=== PATIENT | female | born 2000 | race Caucasian/White ===

== ENCOUNTER 2021-04-21 17:57 | Emergency (ER) | payer OTHER ==
[~2021-04-21 17:57] MED LIST: BENTYL10 MG PO; IBUPROFEN800 MG PO; MEDROL 4MG DOSEP4 MG PO; MOTRIN600 MG PO; NORCO 5-325 TA1 EACH PO; ONDANSETRON ODT4 MG SL; PEPCID AC20 MG PO; PROAIR HFA8.5 GM INH; TAMIFLU 75MG CA75 MG PO; VIBRAMYCIN100 MG PO; ZOFRAN4 MG SL
[2021-04-21 18:57] LABS: BILIRUBIN 1+ mg/dL (NEGATIVE); BLOOD 3+ Ery/uL (NEGATIVE); CLARITY HAZY (CLEAR); COLOR YELLOW (YELLOW); GLUCOSE (U) NORMAL (NORMAL); LEUKOCYTES NEGATIVE Leu/uL (NEGATIVE); NITRITE NEGATIVE (NEGATIVE); PROTEIN 2+ mg/dL (NEGATIVE); SPECIFIC GRAVITY >=1.030 (1.001-1.030); UROBILINOGEN 0.2 mg/dL (0.2-1.0); pH 5.5 (5.0-9.0)
[2021-04-21 19:03] LABS: BASOPHIL 0.2 % (0-2); EOSINOPHIL 0.6 % (0-5); HCT 39.2 % (37.0-47.0); HGB 12.1 g/dl (12.5-16.0); LYMPHOCYTE 18.2 % (15-48); MCH 22.3 pg (25.0-31.0); MCHC 30.9 g/dL (32.0-36.0); MCV 72.2 fL (78.0-100.0); MONOCYTE 5.2 % (0-12); MPV 9.3 fL (6.0-9.5); NEUTROPHIL 75.3 % (41-80); NRBC 0; PLT 457 K/uL (150-400); RBC 5.43 M/uL (4.20-5.40); RDW 16.7 % (11.5-14.0)
[2021-04-21 19:05] LABS: AMORPHOUS URATES CRYSTALS TRACE; AMPHETAMINES NEGATIVE (NEGATIVE); BACTERIA 3+; BARBITURATES NEGATIVE (NEGATIVE); ECSTASY (MDMA) NEGATIVE (NEGATIVE); MARIJUANA (THC) NEGATIVE (NEGATIVE); METHADONE NEGATIVE (NEGATIVE); OPIATES NEGATIVE (NEGATIVE); OXYCODONE NEGATIVE (NEGATIVE)
[2021-04-21 19:20] LABS: ALBUMIN 3.7 g/dL (3.4-5.0); BILIRUBIN - TOTAL 0.4 mg/dL (0.2-1.0); BUN/CREAT RATIO (CALC) 19.5 RATIO; CREATININE 0.41 mg/dL (0.51-0.95); GLOBULIN (CALCULATION) 4.2 g/dL; POTASSIUM 4.1 mmol/L (3.5-5.1); TOTAL PROTEIN 7.9 g/dL (6.4-8.2)
[2021-04-21 19:43] LABS: LACTIC ACID 3.6 mmol/L (0.4-1.9)
[2021-04-21] MEDS ORDERED: BACLOFEN 10MG T10 MG PO (22:35)
[2021-04-21] MEDS ORDERED: BACTRIM DS TAB1 EACH PO (22:35)
[2021-04-21] MEDS ORDERED: NAPROXEN500 MG PO (22:35)
[2021-04-24 18:09] LABS: CHLAMYDIA TRACHOMATIS, NAA Positive (Negative); NEISSERIA GONORRHOEAE, NAA Negative (Negative)
== END 2021-04-21 22:59 | disposition home or self-care (01) ==
LOC: FER 17:57
PROVIDERS: Nurse Practitioner Family
DX: N39.0 Urinary tract infection, site not specified (principal); J45.909 Unspecified asthma, uncomplicated; F17.290 Nicotine dependence, other tobacco product, uncomplicated
CPT/HCPCS: 36415; 80053; 80305; 81001; 83605; 84702; 85025; 87040; 87088; 87491; 87591; J1170; J1885; J2405; J2543; J7030; Q9967

== ENCOUNTER 2021-12-02 18:52 | Emergency (ER) | payer OTHER ==
[~2021-12-02 18:52] MED LIST changes: +BACLOFEN 10MG T10 MG PO; +BACTRIM DS TAB1 EACH PO; +NAPROXEN500 MG PO
[2021-12-02 20:24] LABS: BASOPHIL 0.2 % (0-2); EOSINOPHIL 0.4 % (0-5); HGB 11.4 g/dl (12.5-16.0); LYMPHOCYTE 17.3 % (15-48); MCH 22.9 pg (25.0-31.0); MCHC 31.7 g/dL (32.0-36.0); MCV 72.3 fL (78.0-100.0); MONOCYTE 4.3 % (0-12); MPV 9.4 fL (6.0-9.5); NEUTROPHIL 77.3 % (41-80); NRBC 0; PLT 443 K/uL (150-400); RBC 4.98 M/uL (4.20-5.40); RDW 16.1 % (11.5-14.0); WBC 16.6 K/uL (4.0-10.5)
[2021-12-02 20:50] LABS: BUN/CREAT RATIO (CALC) 15.4 RATIO; CREATININE 0.52 mg/dL (0.51-0.95); POTASSIUM 3.8 mmol/L (3.5-5.1)
[2021-12-02 20:52] LABS: BILIRUBIN NEGATIVE (NEGATIVE); BLOOD 3+ Ery/uL (NEGATIVE); CLARITY CLOUDY (CLEAR); COLOR RED (YELLOW); GLUCOSE (U) 3+ mg/dL (NORMAL); LEUKOCYTES NEGATIVE Leu/uL (NEGATIVE); NITRITE NEGATIVE (NEGATIVE); PROTEIN 1+ mg/dL (NEGATIVE); UROBILINOGEN 0.2 mg/dL (0.2-1.0); pH 6.5 (5.0-9.0)
[2021-12-02 20:56] LABS: BACTERIA TRACE; URINARY RBC TNTC
[2021-12-02] MEDS ORDERED: METFORMIN HCL500 MG PO (23:05)
== END 2021-12-02 23:53 | disposition home or self-care (01) ==
LOC: FER 18:52
PROVIDERS: Nurse Practitioner Family
DX: O99.891 Other specified diseases and conditions complicating pregnancy (principal); O99.519 Diseases of the respiratory system complicating pregnancy, unspecified trimester; N93.8 Other specified abnormal uterine and vaginal bleeding; R73.9 Hyperglycemia, unspecified; J45.909 Unspecified asthma, uncomplicated; Z87.891 Personal history of nicotine dependence
CPT/HCPCS: 36415; 76817; 80048; 81001; 83036; 84702; 85025; 86900; 86901; J7030